=== PATIENT | female | born 1995 | race African-American/Black ===

== ENCOUNTER 2025-04-06 16:18 | Emergency (ER) | payer OTHER, SELFPAY ==
[2025-04-06 16:35] VITALS: BP 125/83; PULSE 72; RESP 18; TEMP 36.3; O2SAT 100
--- NOTE | 2025-04-06 16:43 | ED.EYEPROB ---
HPI - Eye Problem General Chief complaint: Eye Problems Stated complaint: L eye issue Time Seen by Provider: 04/06/25 16:30 Source: patient and RN notes reviewed Mode of arrival: ambulatory Limitations: no limitations History of Present Illness HPI Narrative: 29-year-old female presents [facility] complaining of left lower eyelid swelling for 1 week. Patient reports pain and swelling the left lower eyelid reported having a pustule on her left lower eyelid she is set approximally 1 hour go it popped and the purulent drained out. Patient still reports pain her left lower eyelid reports improvement. Patient has a history of styes. Patient has been doing warm compresses with some relief. Patient denies any eye pain, drainage, headaches, nausea, vomiting, vision problems, or any other symptoms. Related Data Home Medications ?Medication ?Instructions ?Recorded ?Confirmed ?Last Taken ?Type No Home Medications 04/06/25 04/06/25 Unknown History Allergies Allergy/AdvReac Type Severity Reaction Status Date / Time No Known Allergies Allergy Verified 04/06/25 16:41 Review of Systems Review of Systems: CONSTITUTIONAL: Denies fever, chills, or sweats. EYES: Denies visual changes, redness, or discharge. Positive eyelid swelling. ENT: Denies rhinorrhea, congestion, sore throat, or otalgia. CARDIOVASCULAR: Denies chest pain, palpitations, or edema. RESPIRATORY: Denies cough or dyspnea. GASTROINTESTINAL: Denies abdominal pain, nausea, vomiting, or diarrhea. GENITOURINARY: Denies dysuria or hematuria. SKIN: Denies rash or itching. MUSCULOSKELETAL: Denies back pain, joint pain, or myalgia. NEUROLOGIC: Denies headache, numbness, or weakness. PSYCHIATRIC: Denies anxiety or depression. All other systems reviewed are negative, except as documented in HPI. PMFSH Comments At the time of my signature, I reviewed and agree with the nursing past medical, surgical, social, and family history. There is no relevant family history pertinent to the patient complaint. Exam Narrative: GENERAL: This is a well-nourished, well-developed adult, in no apparent distress. They are non ill-appearing, nontoxic appearing. HEAD: normocephalic, atraumatic. EYES: Sclera clear/white. Conjunctiva normal. Vision is grossly intact. Extraocular movements intact. Right upper and lower eyelids normal. Left upper eyelid normal. Lower eyelid erythematous no nodule to the medial eyelid near the medial canthus. It is tender to palpate. Pupils PERRLA. EARS: External ears normal, Hearing grossly intact. NOSE: External nose normal THROAT: Mucous membranes moist, NECK: Neck supple, CARDIOVASCULAR: Regular rate and rhythm RESPIRATORY: Respiratory rate normal, respiratory effort nonlabored, no respiratory distress SKIN: warm, Dry, intact with no suspicious lesions or rash, good texture and turgor. NEURO: awake, alert, and oriented to person, place and time. There were no obvious focal neurologic abnormalities. EXTREMITIES: No joint tenderness, effusion, or edema noted. Course Course Emergency Course: Portions of this record may have been created with voice recognition software Level of Care: Express Care Visit Vital Signs Vital signs: Vital Signs Temperature 97.4 F L 04/06/25 16:35 Pulse Rate 72 04/06/25 16:35 Respiratory Rate 18 04/06/25 16:35 Blood Pressure 125/83 04/06/25 16:35 Pulse Oximetry 100 04/06/25 16:35 Temperature 97.4 F L 04/06/25 16:35 Pulse Rate 72 04/06/25 16:35 Respiratory Rate 18 04/06/25 16:35 Blood Pressure 125/83 04/06/25 16:35 Pulse Oximetry 100 04/06/25 16:35 Reviewed MDM - Eye Problem MDM Narrative Medical decision making narrative: Patient has an external hordeolum, appears the pustules has popped today. Will prescribe erythromycin ointment to prevent infection. Discussed lid washing and warm compresses. Advised patient to see car unloader helper symptoms are not improving after 7 days. Discussed physical exam findings. Advised supportive measures and signs/symptoms to go to the ER. Pt is appropriate for outpt treatment and f/u. Differential Diagnosis Differential diagnosis: Likely conjunctivitis and other (hordeolum, chalazion, blepharitis) Critical Care Time Critical Care Time Critical Care Time: No Discharge Plan Discharge Clinical Impression: Hordeolum externum Qualifiers: Laterality: left Eyelid: lower Qualified Code(s): H00.015 - Hordeolum externum left lower eyelid Patient Disposition: Home Condition: Stable Instructions: Antibiotic Form, [place] (ED) Additional Instructions: Apply warm, moist compresses on the affected area frequently (for 5 to 10 minutes three to five times per day) in order to help with drainage. Massage and gentle wiping of the affected eyelid after the warm compress can also help with drainage. You can use baby shampoo to wash the eye area Avoid wearing eye makeup or contact lenses Use erythromycin ointment as directed. If the lesion does not improve within one to two weeks, please follow up with an car unloader helper for further management. You may contact [facility] or [facility] if you need a eye doctor. Go to the ER for any vision problems, severe eye pain, headaches, nausea, vomiting, fevers, or any serious concerns. Patient Language: Persian Prescriptions: New erythromycin 5 mg/gram (0.5 %) ointment 0.5 inch EACH EYE BID 7 Days Qty: 3.5 0RF No Action No Home Medications Follow-up/Referrals: PHYSICIAN NOT ON STAFF,NONSTAFF [Primary Care Provider] Stand Alone Forms: Work/School Release IP Time of Disposition: 16:40
== END 2025-04-06 16:45 | disposition home or self-care (01) ==
DX: H00.015 Hordeolum externum left lower eyelid (principal)
CPT/HCPCS: 99213; G0463